=== PATIENT | female | born 1945 | race Caucasian/White ===

== ENCOUNTER → 2017-07-22 | Outpatient (CLI) | payer MEDICARE ==
[~2017-07-22] MED LIST: AMOXICOT500 MG PO; ASPIRIN 81MG TA81 MG PO; CLONIDINE HYDR0.1 MG PO; HCTZ/LISINOPRIL1 TA3 PO; OMEPRAZOLE20 MG PO; PAXIL20 MG PO; ZESTRIL 10MG TA10 MG PO
[2017-07-22 07:37] LABS: HEMOGLOBIN 14.7 g/dL (12.2-16.2); LYMPH # 2.3 K/mm3 (0.7-4.5); LYMPH % 27.9 % (10-50.0)
[2017-07-22 10:20] LABS: BUN 9 mg/dL (7-18)
[2017-07-22 10:41] LABS: GFR (ESTIMATED) 99 ML/MIN (59-)
== END ==
LOC: LAB 07:21
PROVIDERS: Family Medicine
DX: I10 Essential (primary) hypertension (principal); J44.9 Chronic obstructive pulmonary disease, unspecified; F41.8 Other specified anxiety disorders; Z72.0 Tobacco use

== ENCOUNTER → 2017-07-26 | Outpatient (CLI) | payer MEDICARE ==
--- NOTE | 2017-07-28 11:31 | RADIOLOGY REPORT PS360 ---
EXAM: CT LUNG LOW DOSE WO CONTRAST TECHNIQUE: The exam was performed on a GE Light Speed [address] scanner using 3.0 mGy CTDI. A low dose helical CT CHEST was performed on a multi-detector scanner The LDCT was performed in a facility that meets the criteria for the screening program. Data regarding this exam was submitted to [employer] which is an approved registry. The order for this exam indicates that it came as a result of a lung cancer screening counseling shard decision-making visit that included all the elements required of such a visit including smoking cessation. The radiologist interpreting this exam meets the CMS criteria for the LDCT lung cancer screening program. The exam is reported using the Lung-RADS classification scale and reported to the [employer]CR registry. NOTE: This study was performed for the specific purposes of lung cancer screening and is not an alternative to diagnostic chest CT. RADIATION DOSE: CTDI vol(CT dose Index-volume) = 2.95mGy DLP (Dose Length Product) = 114.98 mGy-cm COMPARISON: None HISTORY: 1 pack-year 89 years equal 50 pack years. CurrentSmoker asymptomatic otherwise FINDINGS: No suspicious nodules. Indeterminate/Non-actionable Nodules(Category2): Small focal area of density which appears to be due to scarring at the anterior flexion of the right middle lobe sagittal image 39, axial slice 43. Not of significant concern. . Benign nodules(Category1) scattered benign calcified granulomatous nodules.: ... LLL: 5 mm nodule at periphery superior segment LLL (axial slice 37) ... RUL 3.5 mm x nearly 5 mm mm height benign calcified granuloma central right upper lobe. LUNG PARENCHYMA Very subtle Subtle slightly patchy groundglass opacity right middle lobe likely reflecting chronic changes. No significant interstitial septal thickening or discrete other fibrotic changes noted. Minor centrilobular emphysematous changes. Small bleb right lower lobe axial slice 58 Airways disease: Normal to upper normal thickness.. OTHER ANATOMIC REGIONS Lymph Nodes: No enlarged lymph nodes evident. Scattered small nodes are present in the mediastinum and kim. Small calcified hilar nodes bilaterally reflect old granulomatous disease with calcified right peritracheal node reflecting the same. Pleura: Unremarkable Cardiac: Unremarkable Dense atherosclerotic calcification aortic knob and superior aortic arch. OTHER FINDINGS: . 14 mm nodule within enlarged right lobe of thyroid . Partially calcified gallstone within a contracted gallbladder IMPRESSION: 1. No suspicious nodules or masses. Follow-up LDCT one year recommended 2. Lung RADS Category: 2 . Very minor benign-appearing observations Minor pleural & parenchymal density density anterior reflection of minor fissure = minor scarring & not of concern Old Granulomatous disease with scattered small calcified granulomas lung carbajal bilaterally & calcified hilar/mediastinal nodes. 3. Minimal emphysematous changes and chronic lung changes. As above in text 4...*Incidental 14 mm nodule within enlarged right lobe of thyroid.-Suggest thyroid ultrasound* ... 5. Partially calcified gallstone in contracted gallbladder RECOMMENDATIONS: 12 monthd LDCT follow-up. & Consider thyroid ultrasound
== END ==
LOC: RAD 14:13
DX: Z87.891 Personal history of nicotine dependence (principal); Z72.0 Tobacco use; Z12.2 Encounter for screening for malignant neoplasm of respiratory organs
CPT/HCPCS: G0297

== ENCOUNTER → 2017-08-06 | Outpatient (CLI) | payer MEDICARE ==
--- NOTE | 2017-08-08 11:29 | RADIOLOGY REPORT PS360 ---
US THYROID COMPARISON: Low dose CT scan the chest showing possible thyroid nodule right lobe HISTORY: Evaluation for possible right lobe thyroid nodule TECHNIQUE: Targeted ultrasound the thyroid FINDINGS: The isthmus of the gland appears normal. The right lobe measures 1.5 x 1.6 x 3.8 cm. Left lobe measures 1.3 x 1.0 x 3.6 centers. There is homogeneous echogenicity in the right lobe with no definite nodules seen. There is a hypoechoic solid nodule lower pole left lobe measuring 1.0 x 1.3 x 1.0 cm. IMPRESSION: Normal size gland with hypoechoic solid nodule left lower pole likely thyroid adenoma
== END ==
LOC: RAD 10:07
DX: E07.89 Other specified disorders of thyroid (principal)

== ENCOUNTER → 2017-08-18 | Outpatient (CLI) | payer MEDICARE ==
[2017-08-18 08:38] LABS: HEMOGLOBIN 14.1 g/dL (12.2-16.2); LYMPH # 3.4 K/mm3 (0.7-4.5); LYMPH % 29.6 % (10-50.0)
[2017-08-18 09:23] LABS: BUN 8 mg/dL (7-18)
[2017-08-18 09:25] LABS: GFR (ESTIMATED) 83 ML/MIN (59-)
== END ==
LOC: LAB 08:25
PROVIDERS: Surgery
DX: C44.612 Basal cell carcinoma of skin of right upper limb, including shoulder (principal); Z01.818 Encounter for other preprocedural examination

== ENCOUNTER 2017-08-25 06:53 | Day surgery (SDC) | payer MEDICARE ==
[~2017-08-25] VITALS: Ht 160 cm; Wt 72.6 kg
[2017-08-25 10:11] VITALS: BP 126/72
--- NOTE | 2017-08-25 11:18 | Operative Note ---
Surgeon/Diagnoses Surgeon/Shredded F[employer] Machine(s) Date of procedure: 08/25/17 Surgeon: Saleem Bowles Diagnoses Pre-op diagnosis: Skin cancer RIGHT posterior shoulder Post-op diagnosis Same Procedure Procedure Procedure: Excision of basal cell skin cancer from RIGHT posterior shoulder (4.0 cm) with intermediate complexity closure. Indications: ROXI VAZQUEZ is a 71 year-old Female with a history of lesion on the back , RIGHT posterior shoulder area. She had limited excision under local anesthesia and pathology returned as basal cell carcinoma with positive margin. She was sent for surgical consultation for excision. Plan was made for excision with several millimeter grossly negative margin under local Mac. Findings: Skin lesion Procedure Description: Consent was obtained and patient was taken the operating room. She is positioned in a LEFT lateral decubitus position. Anesthesia sedation was achieved. The area was prepped and draped. The lesion was marked with a skin marker for planned several millimeter negative margins. Local anesthetic was infiltrated. Full- thickness skin excision was performed approximately 4 cm in length. Hemostasis was achieved with electrocautery. Subdermal tissues were approximated with interrupted 3-0 Vicryl. Skin was closed with interrupted 4-0 nylon. Clean dry sterile dressing was applied. EBL (ml): 5 Anesthesia: local Mac Specimens: Skin cancer Disposition Disposition: To postop at 1111
== END 2017-08-25 09:30 | disposition home or self-care (01) ==
LOC: SDC 06:53
PROVIDERS: Surgery
PROC: 0HBBXZZ Excision of Right Upper Arm Skin, External Approach (ICD-10-PCS; 2017-08-25)
PROC: 0HQBXZZ Repair Right Upper Arm Skin, External Approach (ICD-10-PCS; principal; 2017-08-25 08:30)
DX: C44.612 Basal cell carcinoma of skin of right upper limb, including shoulder (principal)